=== PATIENT | male | born 1970 | race Two or more races ===

== ENCOUNTER 2023-08-26 21:49 | Emergency (ER) | payer OTHER ==
[~2023-08-26] VITALS: Ht 172.7 cm; Wt 122.5 kg
[~2023-08-26 21:49] MED LIST: FORTAMET1000 MG; SYNTHROID175 MCG PO; SYNTHROID200 MCG PO
[2023-08-26] MEDS ORDERED: ASPIRIN81 MG (22:17)
[2023-08-26] MEDS ORDERED: LOSARTAN POTASS50 MG (22:18)
[2023-08-26] MEDS ORDERED: FENOFIBRATE50 MG (22:20)
[2023-08-26] MEDS ORDERED: INVOKANA300 MG (22:20)
== END 2023-08-26 23:23 | disposition home or self-care (01) ==
LOC: ER 21:50
DX: M54.50 Low back pain, unspecified (principal); Z91.013 Allergy to seafood; Z91.041 Radiographic dye allergy status